=== PATIENT | female | born 1985 | race African-American/Black ===

== ENCOUNTER 2018-06-20 02:41 | Emergency (ER) | payer MEDICAID ==
[~2018-06-20] VITALS: Ht 170.2 cm; Wt 122.8 kg
[2018-06-20] MEDS ORDERED: TETANUS, DIPHTHERIA, PERTUSSIS VAC/PF 0.5ML (>7YR OLD) IM ONE (03:15)
[2018-06-20] MEDS ORDERED: ALPRAZOLAM 0.25 MG TABLET PO ONE (03:30)
[2018-06-20 06:02] VITALS: BP 132/68
== END 2018-06-20 06:07 | disposition home or self-care (01) ==
LOC: ER 02:41
DX: S90.811A Abrasion, right foot, initial encounter (principal); W22.8XXA Striking against or struck by other objects, initial encounter; Y93.89 Activity, other specified; Y92.89 Other specified places as the place of occurrence of the external cause; Y99.8 Other external cause status
CPT/HCPCS: 73630; 81025; 90471; 90715; 99283